=== PATIENT | male | born 1970 | race Caucasian/White ===

== ENCOUNTER 2021-02-23 17:27 | Emergency (ER) | payer SELFPAY ==
[~2021-02-23] VITALS: Ht 175.3 cm; Wt 100.0 kg
[2021-02-23 17:59] LABS: BASOPHILS % 0.7 % (0.0-2.0); HEMATOCRIT. 40.8 % (42.0-52.0); HEMOGLOBIN. 14.2 g/dL (14.0-18.0); LYMPHOCYTES % 27.5 % (20.0-50.0); MEAN CORPUSCULAR VOLUME 91.7 fL (80.0-94.0); MONOCYTES % 7.9 % (2.0-8.0); NEUTROPHILS % 56.9 % (40.0-76.0); PLATELET 267 x1000/uL (130-400); RED BLOOD CELL COUNT 4.44 mill/uL (4.7-6.1); RED CELL DISTRIBUTION WIDTH 12.9 % (11.6-14.6)
[2021-02-23 18:04] LABS: CHLORIDE 105 mEq/L (98-107)
[2021-02-23] MEDS ORDERED: SODIUM CHLORIDE 0.9% 1,000 ML IV ONE ×2 (18:15→22:00)
[2021-02-23 18:54] LABS: CLARITY URINE CLEAR (CLEAR); COLOR URINE YELLOW (YELLOW); KETONES URINE TRACE (NEGATIVE); LEUKOCYTE ESTERASE URINE NEGATIVE (NEGATIVE); NITRITE URINE NEGATIVE (NEGATIVE); OCCULT BLOOD URINE TRACE (NEGATIVE); PROTEIN URINE NEGATIVE (NEGATIVE); SPECIFIC GRAVITY URINE 1.026 (1.005-1.030); UROBILINOGEN URINE 0.2 E.U./dL (0.2-1.0)
[2021-02-23 19:00] LABS: ETHANOL BLOOD < 10 mg/dL
[2021-02-23 19:02] LABS: *BARBITURATES SCREEN URINE NEGATIVE (NEGATIVE)
[2021-02-23 19:03] LABS: *AMPHETAMINES SCREEN URINE NEGATIVE (NEGATIVE); *BENZODIAZEPINES SCREEN URINE NEGATIVE (NEGATIVE); *COCAINE SCREEN URINE NEGATIVE (NEGATIVE); METHADONE URINE SCREEN NEGATIVE (NEGATIVE); OPIATES URINE SCREEN NEGATIVE (NEGATIVE); PHENCYCLIDINE URINE SCREEN NEGATIVE (NEGATIVE)
[2021-02-23 19:04] LABS: CANNABINOID URINE SCREEN PRESUMTIVE POSITIVE (NEGATIVE)
[2021-02-23 19:05] LABS: CREATINE KINASE 221 IU/L (39-308)
[2021-02-24 00:04] VITALS: BP 120/69
== END 2021-02-24 00:05 | disposition home or self-care (01) ==
LOC: ER 18:15
DX: R41.82 Altered mental status, unspecified (principal); F17.290 Nicotine dependence, other tobacco product, uncomplicated
CPT/HCPCS: 36415; 70450; 71045; 80053; 80305; 80307; 80320; 80329; 81003; 82140; 82550; 82962; 83605; 83690; 83735; 83880; 84443; 84484; 85025; 93005; 96360; 99285; J7030; G0480